=== PATIENT | female | born 1990 | race African-American/Black ===

== ENCOUNTER 2019-07-19 12:01 | Emergency (ER) | payer SELFPAY ==
[~2019-07-19] VITALS: Ht 167.6 cm; Wt 73.5 kg
[2019-07-19 13:15] VITALS: BP 122/63; Ht 167.6 cm; Wt 73.5 kg
== END 2019-07-19 14:32 | disposition home or self-care (01) ==
LOC: ED 12:01
DX: J06.9 Acute upper respiratory infection, unspecified (principal); F17.210 Nicotine dependence, cigarettes, uncomplicated; J45.909 Unspecified asthma, uncomplicated; Z98.890 Other specified postprocedural states